=== PATIENT | female | born 1945 | race Caucasian/White ===

== ENCOUNTER 2017-07-20 10:23 | Emergency (ER) | payer MEDICARE, OTHER ==
[2017-07-20 11:00] VITALS: RESP 20
[2017-07-20 11:18] LABS: BASOPHILS % (AUTO) 1 % (0-3); EOSINOPHILS % (AUTO) 2 % (0-9); HEMATOCRIT 39 % (35-47); HEMOGLOBIN 13.5 gm/dl (12.0-15.5); LYMPHOCYTES % (AUTO) 46.2 % (10-50); MEAN CORPUSCULAR HEMOGLOBIN 29.2 pg (27.0-32.0); MEAN CORPUSCULAR HGB CONC 34.3 gm/dl (32.0-36.0); MEAN CORPUSCULAR VOLUME 85 fL (81-99); MONOCYTES % (AUTO) 10.3 % (0-12); NEUTROPHILS % (AUTO) 40.6 % (37-80)
[2017-07-20 11:35] LABS: ALBUMIN 3.1 gm/dl (3.4-5.0); BILIRUBIN,TOTAL 0.2 mg/dl (0.2-1.0); CALCIUM 8.2 mg/dl (8.5-10.1); CARBON DIOXIDE 24.4 mEq/L (21-32); CREATININE 0.83 mg/dl (0.60-1.00); POTASSIUM 3.4 mMol/L (3.5-5.1); TOTAL PROTEIN 7.3 gm/dl (6.4-8.2)
[2017-07-20 12:34] VITALS: BP 129/69; PULSE 87; TEMP 97.2; O2SAT 98
== END 2017-07-20 12:36 | disposition home or self-care (01) | DRG 392 ==
LOC: ED 10:23
DX: K52.9 Noninfective gastroenteritis and colitis, unspecified (principal); M25.552 Pain in left hip; Z96.642 Presence of left artificial hip joint
CPT/HCPCS: 73502; 80053; 85025; 99283

== ENCOUNTER 2018-01-12 14:10 | Outpatient (CLI) | payer OTHER ==
[2017-07-20 12:34] VITALS: O2SAT 98
[2018-01-12 16:55] LABS: SEDIMENTATION RATE 20 mm/hr (0-20)
[2018-01-12 17:15] LABS: BASOPHILS % (AUTO) 1 % (0-3); EOSINOPHILS % (AUTO) 1 % (0-9); HEMATOCRIT 42 % (35-47); HEMOGLOBIN 13.8 gm/dl (12.0-15.5); LYMPHOCYTES % (AUTO) 44.3 % (10-50); MEAN CORPUSCULAR HEMOGLOBIN 28.6 pg (27.0-32.0); MEAN CORPUSCULAR HGB CONC 32.5 gm/dl (32.0-36.0); MEAN CORPUSCULAR VOLUME 88 fL (81-99); MONOCYTES % (AUTO) 4.6 % (0-12); NEUTROPHILS % (AUTO) 48.9 % (37-80)
== END 2018-01-12 14:11 | disposition home or self-care (01) | DRG 556 ==
LOC: CONVCARE 14:10
PROVIDERS: ATTEND Orthopaedic Surgery
DX: M25.552 Pain in left hip (principal); Z96.649 Presence of unspecified artificial hip joint
CPT/HCPCS: 36415; 72120; 73502; 85025; 85651

== ENCOUNTER 2018-02-18 12:03 | Day surgery (SDC) | payer OTHER ==
[2018-02-18] MEDS ORDERED: DEXAMETHASONE SOD PHOS PF 10 MG/ML SOL IJ ONE (12:44)
[2018-02-18] MEDS ORDERED: BUPIVACAINE HCL 0.25% MPF 30 ML SOL INFIL ONE (12:45)
[2018-02-18 13:13] VITALS: BP 154/94; PULSE 88; RESP 16; TEMP 98.1; O2SAT 98
== END 2018-02-18 13:41 | disposition home or self-care (01) | DRG 552 ==
LOC: SURG 12:03
PROVIDERS: ATTEND Nurse Anesthetist, Certified Registered
DX: M51.17 Intervertebral disc disorders with radiculopathy, lumbosacral region (principal); E11.9 Type 2 diabetes mellitus without complications
CPT/HCPCS: 82962; J1100

== ENCOUNTER 2018-03-31 09:53 | Day surgery (SDC) | payer OTHER ==
[2018-03-31] MEDS ORDERED: BUPIVACAINE HCL 0.25% MPF 30 ML SOL INFIL ONE (10:30)
[2018-03-31] MEDS: DEXAMETHASONE SOD PHOS PF 10 MG/ML SOL IJ ONE ×2 (10:36→10:45)
[2018-03-31 10:41] VITALS: RESP 18
[2018-03-31 10:54] VITALS: BP 169/92; PULSE 75; TEMP 97.9; O2SAT 95
== END 2018-03-31 11:17 | disposition home or self-care (01) | DRG 639 ==
LOC: SURG 09:53
PROVIDERS: ATTEND Nurse Anesthetist, Certified Registered
DX: E11.9 Type 2 diabetes mellitus without complications (principal); M48.062 Spinal stenosis, lumbar region with neurogenic claudication
CPT/HCPCS: 82962; J1100

== ENCOUNTER 2018-04-29 08:28 | Day surgery (SDC) | payer OTHER ==
[2018-04-29] MEDS ORDERED: BUPIVACAINE HCL 0.25% MPF 30 ML SOL INFIL ONE (09:02)
[2018-04-29] MEDS: DEXAMETHASONE SOD PHOS PF 10 MG/ML SOL IJ ONE ×2 (09:11→09:20)
[2018-04-29 09:21] VITALS: PULSE 86
[2018-04-29 09:36] VITALS: BP 157/81; RESP 16; TEMP 97.9; O2SAT 96
== END 2018-04-29 09:50 | disposition home or self-care (01) | DRG 552 ==
LOC: SURG 08:28
PROVIDERS: ATTEND Nurse Anesthetist, Certified Registered
DX: M48.062 Spinal stenosis, lumbar region with neurogenic claudication (principal); E11.9 Type 2 diabetes mellitus without complications
CPT/HCPCS: J1100

== ENCOUNTER 2018-06-10 13:36 | Day surgery (SDC) | payer OTHER ==
[2018-06-10] MEDS ORDERED: BUPIVACAINE HCL 0.5% MPF 10 ML SOL ONE (14:47)
[2018-06-10] MEDS ORDERED: LIDOCAINE HCL 1% MPF 30 SOL ONE (14:47)
[2018-06-10 15:23] VITALS: BP 131/70; PULSE 87; RESP 18; TEMP 97.4; O2SAT 94
== END 2018-06-10 15:38 | disposition home or self-care (01) | DRG 554 ==
LOC: SURG 13:36
PROVIDERS: ATTEND Nurse Anesthetist, Certified Registered
DX: M12.88 Other specific arthropathies, not elsewhere classified, other specified site (principal); E11.9 Type 2 diabetes mellitus without complications
CPT/HCPCS: J2001

== ENCOUNTER 2018-09-01 12:51 | Day surgery (SDC) | payer OTHER ==
[2018-09-01 14:27] VITALS: BP 162/78; PULSE 82; RESP 16; TEMP 97.5; O2SAT 98
== END 2018-09-01 14:36 | disposition home or self-care (01) | DRG 554 ==
LOC: SURG 12:51
PROVIDERS: ATTEND Nurse Anesthetist, Certified Registered
DX: M12.88 Other specific arthropathies, not elsewhere classified, other specified site (principal); E11.9 Type 2 diabetes mellitus without complications

== ENCOUNTER 2018-09-09 12:09 | Day surgery (SDC) | payer OTHER ==
[2018-09-09] MEDS ORDERED: LIDOCAINE HCL 2% MPF 10 ML SOL ONE (13:09)
[2018-09-09] MEDS ORDERED: BUPIVACAINE HCL 0.25% MPF 30 ML SOL INFIL ONE (13:10)
[2018-09-09] MEDS ORDERED: LIDOCAINE HCL 1% MPF 30 SOL ONE (13:10)
[2018-09-09] MEDS ORDERED: MIDAZOLAM 2 MG/2 ML SOL ONE (13:13)
[2018-09-09] MEDS ORDERED: SODIUM CHLORIDE 0.9% FLUSH 10 ML SOL IV ONE (13:22)
[2018-09-09] MEDS: FENTANYL 100MCG/2ML SOL ONE ×2 (13:22→13:59)
[2018-09-09] MEDS: TRIAMCINOLONE ACETONIDE 40 MG/ML SUS ONE ×3 (13:28→14:03)
[2018-09-09 14:18] VITALS: BP 123/76; PULSE 74; RESP 20; TEMP 98.5; O2SAT 95
== END 2018-09-09 14:44 | disposition home or self-care (01) | DRG 554 ==
LOC: SURG 12:09
PROVIDERS: ATTEND Nurse Anesthetist, Certified Registered
DX: M12.88 Other specific arthropathies, not elsewhere classified, other specified site (principal); E11.9 Type 2 diabetes mellitus without complications
CPT/HCPCS: J2250; J3010; J2001; J3300